=== PATIENT | female | born 1995 | race Caucasian/White ===

== ENCOUNTER 2019-08-21 14:06 | Inpatient (IN) | payer MEDICAID ==
[~2019-08-21] VITALS: Ht 157.5 cm; Wt 35.5 kg
[2019-08-21] MEDS ORDERED: magnesium hydroxide 30ml (MOM) UD suspension PO PRN (18:45)
[2019-08-21] MEDS ORDERED: loperamide 2mg capsule PO PRN (18:45)
[2019-08-21] MEDS ORDERED: acetaminophen 325mg tablet PO PRN (18:45)
[2019-08-21] MEDS ORDERED: mag hydrox/Alum hydrox/simeth 30ml oral suspension PO PRN (18:45)
[2019-08-21] MEDS: LORazepam 1 MG tablet PO PRN (19:35)
[2019-08-21] MEDS ORDERED: insulin regular, human 10 units/0.1 ml syringe SQ ONE (19:55)
[2019-08-21 20:00] VITALS: BP 107/69
[2019-08-21] MEDS ORDERED: metFORMIN 500mg tablet PO ONE (20:00)
[2019-08-21] MEDS ORDERED: METF-950 PO (21:36)
[2019-08-21] MEDS ORDERED: INSU500V IJ (21:36)
[2019-08-21] MEDS ORDERED: GLYB2.5T4 PO (21:36)
--- NOTE | 2019-08-22 02:06 | NUR ---
ADMIT NOTE Legal hold: 5150 Exp 08/24 @ 1820 Client on involuntary status for GD. Report received from WALLACE Malik with use of SBAR. Why are they here: Pt was brought to [facility] by her mother, with report of agitation, bizarre behaviors, poor self-care and drug use. 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 She was found in a ditch with medical and mental health issues. Pt is Type 1 DM. Assessment What has happened this shift: Pt arrived on unit in a wheelchair at 1820 with PCT Ramiro. Pt showered and the 2Nurse skin check was performed by WALLACE Capps and Deepa GONSALEZ. Pt belongings were logged and no contraband found. Pt was agitated, not quite sure why she was here. Pt was administered 1 mg Ativan. Pt's blood sugar was taken on arrival to unit - BS was 442. An order for 12 units of Humulin R (pt allergic to insulin Lispro) was received by Dr. Kang. Blood sugar was retaken around 2129 - BS 291. Pt is not a good historian and didn't answer many questions. Pt was agitated she missed her 3 year old daughter who's birthday is in two days, but when asked about daughter later pt wouldn't answer questions. Pt making delusional statements "I am a female Marvin", "I came of the the grave in [place] covered in dirt." "50 people said I was Marvin, I knew it when I passed a blind chani and he was healed." Pt was compliant with meds (insulin and Glucophage 500 mg tab). Pt retired to bed talking about the book of the . S/I, H/I: None reported or observed. Pt has a history of SI, but no attempts. 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 Any med S/E: None reported or observed. Mental Status Exam Appearance: Clean, wearing green unit scrubs, with her shirt underneath and a leopard print jacket. Cachectic appearance. Eye contact: Poor Behavior: Cooperative, agitated Speech: Clear, soft, pressured Mood: Agitated Affect: Congruent with mood Thought process: Delusional, tangential Thought Content: Pt wants to eat Cognition: Impaired Insight: Poor Judgment: Poor Interventions PRN's used: Ativan Therapeutic interventions: Introduced self and established rapport, 1:1 assessment, medication administration/education/monitoring, reality orientation; Q15 min safety checks. Restraints/seclusion/emergency medication: None Justification of Continued Inpatient Treatment: Pt needs interruption of current crisis with initiation and adjustment of medication in a safe and therapeutic environment.
[2019-08-22] MEDS: LORazepam 1 MG tablet PO PRN (03:15)
--- NOTE | 2019-08-22 03:30 | NUR ---
Pt awake at 0300, requested her blood sugar be checked as she felt low, pts sugar was 47, administered 30 GM CHO per protocol, rechecked blood sugar after 15 minutes and it was up to 79. Pt was also agitated, she was reading her advisement and was stating it was "All lies!" She stated that she has not been missing for 6 months, that she "arose from the grave after 6 days because I am Marvin and now I am being persecuted!!!" Ativan 1 mg given, will continue to monitor.
[2019-08-22 07:43] VITALS: BP 94/49
[2019-08-22] MEDS ORDERED: insulin regular, human 10 units/0.1 ml syringe SQ SCH (08:00)
[2019-08-22] MEDS: metFORMIN 500mg tablet PO SCH ×2 (08:02→17:50)
[2019-08-22] MEDS: insulin regular, human vial - multi-dose SQ SCH ×3 (08:07→18:09)
[2019-08-22 08:52] LABS: CHOL/HDL RATIO 3.4 (0.00-4.99); CHOLESTEROL 155 MG/DL (0-200); HDL CHOLESTEROL 45 MG/DL (35-60); LDL CHOLESTEROL 95 MG/DL (50-100); TRIGLYCERIDES 113 MG/DL (20-135)
[2019-08-22] MEDS ORDERED: pneumococcal 23-VAL P-sac vacc 25 mcg/0.5ml vial IMVAC ONE (10:00)
[2019-08-22] MEDS ORDERED: FLU VACC QS2019-20 36MOS UP/PF 60 MCG/0.5 ML SYRINGE IMVAC ONE (10:00)
--- NOTE | 2019-08-22 12:04 | NUR ---
DM/Malnutrition consults: Pt admit on 5150 found down in ditch after disappearing for 6 month relapsing on meth per RN note. Pt hx T1DM GLU 442 on admit w/ A1C 9.0. Pt having anxiety, hallucinations, stating "is female Marvin murphy from the grave" and is not appropriate for DM ed at this time. Pt has no edema/wounds, normal strength, no wt hx since first admit, and PO 75-100% breakfast today. At this time pt does not meet malnutrition criteria. Will monitor for additional criteria this admit. Rec: 1. continue carb controlled diet 2. bowel care as needed 3. weekly wts 4. monitor for ONS needs pending further PO hx this admit Addendum: 08/22/19 at [address] Amended: Links added.
[2019-08-22] MEDS ORDERED: insulin glargine (Lantus) pen - multi-dose SQ ONE (13:30)
--- NOTE | 2019-08-22 16:39 | NUR ---
ADMIT NOTE Legal hold: 5150 Exp 08/24 @ 1820 Client on involuntary status for GD. Report received from WALLACE Cameron with use of SBAR. Why are they here: Pt was brought to [facility] by her mother, with report of agitation, bizarre behaviors, poor self-care and drug use. 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 She was found in a ditch with medical and mental health issues. Pt is Type 1 DM. Assessment What has happened this shift: Pt yelling and screaming at her mother on the phone before breakfast. Pt encouraged to not yell and to talk quieter while other's are still sleeping. Pt followed directions well then shared how upset she was with her mother "it's her fault I am here." Pt provided consents to speak and share information with her mother, Hernandez Chandler and scott Calvin. Pt is diabetic with high BS's. She was given a one time dose of Lantus today due to BS of 494. Hospitalist to see and write insulin orders. S/I, H/I: None reported A/VH: Pt denies Sleep: took a two hour nap after AM medications ADL's: Independent Group attendance: Afternoon group Were Meds taken: Yes Any med S/E: None reported or observed. Mental Status Exam Appearance: Showering Eye contact: Poor Behavior: Cooperative, agitated Speech: Clear, soft, pressured Mood: Agitated Affect: Congruent with mood Thought process: Delusional, tangential Thought Content: Pt wants to eat Cognition: Impaired Insight: Poor Judgment: Poor Interventions PRN's used: Ativan Therapeutic interventions: 1:1 assessment, medication administration/education/monitoring, reality orientation; Q15 min safety checks. Restraints/seclusion/emergency medication: None Justification of Continued Inpatient Treatment: Pt needs interruption of current crisis with initiation and adjustment of medication in a safe and therapeutic environment. Addendum: 08/22/19 at 1657 by Edna Zarriello RN Not an admit note
[2019-08-22] MEDS ORDERED: metFORMIN 500mg tablet PO ONE (17:00)
[2019-08-22] MEDS ORDERED: dextrose ORAL solution 15 GM/59 ML bottle PO PRN ×2 (18:15)
[2019-08-22] MEDS ORDERED: glucagon, human recombinant 1mg kit SUBCUT PRN (18:15)
[2019-08-22] MEDS ORDERED: MESSAGE TO PHARMACY PO ONE (18:15)
[2019-08-22] MEDS ORDERED: dextrose 50%-water 50ml dispensing syringe IV PRN ×2 (18:15)
[2019-08-22] MEDS ORDERED: insulin Lispro (HumaLOG) vial - multi-dose SQ SCH (18:15)
[2019-08-22] MEDS ORDERED: insulin regular, human vial - multi-dose SQ SCH (18:27)
[2019-08-22] MEDS ORDERED: FURO-149 PO (19:03)
[2019-08-22] MEDS ORDERED: METO-292 PO ×2 (19:03)
[2019-08-22] MEDS ORDERED: AMLO5TAB4 PO (19:03)
[2019-08-22] MEDS ORDERED: LEVO200T8 PO (19:03)
[2019-08-22] MEDS ORDERED: METO-539 PO (19:03)
[2019-08-22] MEDS ORDERED: CALC668T PO (19:03)
[2019-08-22] MEDS ORDERED: FOLI1CAP8 PO (19:03)
[2019-08-22] MEDS ORDERED: ONDA4TAB6 PO (19:03)
[2019-08-22] MEDS ORDERED: ALBU2.5V13 NEB (19:03)
[2019-08-22] MEDS ORDERED: PANT-47 PO (19:03)
[2019-08-22] MEDS ORDERED: FENO160T13 PO (19:03)
[2019-08-22] MEDS ORDERED: GABA-532 PO (19:03)
[2019-08-22] MEDS ORDERED: SERT100T PO (19:03)
[2019-08-22] MEDS ORDERED: FLUT1BLS4 PO (19:03)
[2019-08-22] MEDS ORDERED: CLOP75TA9 PO (19:03)
[2019-08-22] MEDS ORDERED: hyDRALAzine 10mg tablet PO PRN (19:20)
[2019-08-22 19:57] VITALS: BP 123/64
[2019-08-22] MEDS: insulin glargine (Lantus) pen - multi-dose SQ SCH (21:13)
[2019-08-22] MEDS ORDERED: risperiDONE 0.5mg tablet PO ONE (22:40)
[2019-08-22] MEDS ORDERED: divalproex sod 250mg ER (24-hour) tablet PO ONE (22:40)
[2019-08-23] MEDS ORDERED: quetiapine 100mg tablet PO ONE (00:35)
--- NOTE | 2019-08-23 01:58 | NUR ---
Nursing Progress Note Legal hold: 5150 Exp 08/24 @ 1820 Client on involuntary status for GD. Report received from WALLACE Salomon with use of SBAR. Why are they here: Pt was brought to [facility] by her mother, with report of agitation, bizarre behaviors, poor self-care and drug use. 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 She was found in a ditch with medical and mental health issues. Pt is Type 1 DM. Assessment What has happened this shift: Pt walking perez with another peer. Pt appears to crying then starts laughing. Pt conversation is disorganized, unable to keep on one idea. Pt states "oh ya you think you are, when asked questions; almost like she is answering questions in head. Pt perseverated on Andres, PCT thinking he was another Andres "you don't give a fuck about me , not if I live or ." Pt reported "I feel like something is crawling out of my throat. This newswriter reoriented pt to reality. Pt was restless, possibly hypomanic. Pt was started on Depakote ER 1,000mg and Risperdal 1mg. Pt was administered 8 units of Lantus with protocol starting tomorrow as per note from Stuart. Dr. Orr added Hydralazine 10 mg PRN for pt's HTN. Pt hasn't been taking home meds for several months now. Pt's blood sugar was 230 before snack, pt received low fat yogurt and cheese. Pt received her flu and pneumonia injection. Pt had to be monitored for elopement. Pt was up to the front entrance "I am not going to sit around and rot in this hospital or this bed." "I am going down the hill where I belong." With some reassurance and redirection, pt eventually was assisted back to her bed where she is currently sleeping with even, unlabored breathing. Pt's blood sugar at this time was 306. 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 Any med S/E: None reported or observed. Mental Status Exam Appearance: Clean, thin, wearing street clothes with a fuzzy leopard print jacket and baseball cap Eye contact: Poor Behavior: Cooperative, agitated, hypomanic Speech: Clear, soft, pressured Mood: Agitated, hypomanic, delusional Affect: Flat with intermittent animation Thought process: Delusional, tangential Thought Content: Pt wants to eat Cognition: Impaired Insight: Poor Judgment: Poor Interventions PRN's used: None Therapeutic interventions: 1:1 assessment, medication administration/education/monitoring, reality orientation; Q15 min safety checks. Restraints/seclusion/emergency medication: None Justification of Continued Inpatient Treatment: Pt needs interruption of current crisis with initiation and adjustment of medication in a safe and therapeutic environment. Addendum: 08/23/19 at 0324 by Hetal Jaimes RN Pt is awake, pt is agitated and wants a cigarette. Unit rules are explained. Pt is refusing any interventions. "I don't do patches or lozenges." You are a patient here and you smoke, I want a cigarette." Pt refuses anti-anxiety interventions. Will continue to monitor.
[2019-08-23 05:45] LABS: BASOPHILS % (AUTO) 0.3 % (0-1); EOSINOPHILS % (AUTO) 0.3 % (0-6); HEMATOCRIT 37.6 % (35.0-45.0); HEMOGLOBIN 12.7 g/dl (12.0-16.0); LYMPHOCYTES # (AUTO) 2.4 X10'3 (1.1-4.8); MEAN CORPUSCULAR HEMOGLOBIN 31.5 PG (27.0-31.0); MEAN CORPUSCULAR HGB CONC 33.8 g/dL (33.0-36.5); MEAN CORPUSCULAR VOLUME 93.1 FL (78-98); MEAN PLATELET VOLUME 8.3 FL (7.4-10.4); MONOCYTES % (AUTO) 6.6 % (2-12); NEUTROPHILS # (AUTO) 11.4 X10'3 (1.8-7.7); NEUTROPHILS % (AUTO) 76.8 % (42-75); PLATELET COUNT 302 X10'3 (140-440); RED BLOOD COUNT 4.04 X10'6 (4.20-5.60); WHITE BLOOD COUNT 14.9 X10'3 (4.5-11.0)
[2019-08-23 06:02] LABS: ALANINE AMINOTRANSFERASE 30 U/L (12-78); ALBUMIN 3.2 G/DL (3.4-5.0); ALKALINE PHOSPHATASE 88 IU/L (46-116); ANION GAP 8 (8-16); ASPARTATE AMINO TRANSFERASE 14 U/L (10-37); BILIRUBIN,TOTAL 0.3 MG/DL (0.1-1.0); BLOOD UREA NITROGEN 13 MG/DL (7-18); BUN/CREATININE RATIO 14.3 (6.6-38.0); CHLORIDE 101 MMOL/L (99-107); CREATININE 0.91 MG/DL (0.40-0.90); GLUCOSE 249 MG/DL (70-104); POTASSIUM 4.3 MMOL/L (3.5-5.1); SODIUM 137 MMOL/L (135-145); TOTAL CARBON DIOXIDE 28.5 MMOL/L (24-32); TOTAL PROTEIN 6.4 G/DL (6.4-8.2); eGFR 75 ML/MIN
[2019-08-23] MEDS: metFORMIN 500mg tablet PO SCH ×2 (07:25→21:44)
[2019-08-23 08:00] VITALS: BP 107/63
[2019-08-23] MEDS ORDERED: non-formulary drug (Glyburide 1 TAB) PO SCH (08:00)
[2019-08-23] MEDS: insulin regular, human vial - multi-dose SQ SCH ×2 (08:27→13:27)
[2019-08-23] MEDS: LORazepam 1 MG tablet PO PRN (14:06)
[2019-08-23] MEDS ORDERED: LORazepam 1 MG tablet PO ONE (14:15)
[2019-08-23] MEDS ORDERED: diphenhydrAMINE 25mg capsule PO ONE (14:15)
[2019-08-23] MEDS ORDERED: haloperidol 5mg tablet PO ONE (14:15)
--- NOTE | 2019-08-23 17:17 | NUR ---
Nursing Progress Note Legal hold: 5150 Exp 08/24 @ 1820 Client on involuntary status for GD. Report received from WALLACE Fong with use of SBAR. Why are they here: Pt was brought to [facility] by her mother, with report of agitation, bizarre behaviors, poor self-care and drug use. 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 She was found in a ditch with medical and mental health issues. Pt is Type 1 DM. Assessment What has happened this shift: Pt walking perez with another peer. Pt had a good moring; She is now on Level 2. BSs running in the high 200s. After lunch pt tried to get out two doors, crying yelling, please let me out of here I want to see my Mom, my baby. She ended up in the doctors office on the floor crying. Pt was assisted to her room she requested PRNs, I just want to sleep. Pt cried for the next two hours laying on the bed in the observation room. S/I, H/I: Denies A/VH: Denies Sleep: Slept after PRNs fell asleep at 1515 ADL's: Independent Group attendance: AM Were Meds taken: Medication compliant. Any med S/E: None reported or observed. Mental Status Exam Appearance: She is wearing the same clothes from yesterday Eye contact: Poor Behavior: Cooperative, agitated, hypomanic Speech: Clear, soft, pressured Mood: Agitated, hypomanic, delusional Affect: Depressed affect; tearful Thought process: Delusional, tangential Thought Content: Pt wants to eat Cognition: Impaired Insight: Poor Judgment: Poor Interventions PRN's used: None Therapeutic interventions: 1:1 assessment, medication administration/education/monitoring, encouraged pt to calm down and talk about her feelings reality orientation, Q15 min safety checks. Restraints/seclusion/emergency medication: None Justification of Continued Inpatient Treatment: Pt needs interruption of current crisis with initiation and adjustment of medication in a safe and therapeutic environment.
[2019-08-23 20:55] VITALS: BP 97/58
[2019-08-23] MEDS ORDERED: risperiDONE 0.5mg tablet PO SCH (21:00)
[2019-08-23] MEDS: divalproex sod 250mg ER (24-hour) tablet PO SCH (21:44)
[2019-08-23] MEDS: insulin glargine (Lantus) pen - multi-dose SQ SCH (22:06)
--- NOTE | 2019-08-24 02:02 | NUR ---
Nursing Progress Note Legal hold: 5150 Exp 08/24 @ 1820 Client on involuntary status for GD. Report received from WALLACE Salomon with use of SBAR. Why are they here: Pt was brought to [facility] by her mother, with report of agitation, bizarre behaviors, poor self-care and drug use. 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 She was found in a ditch with medical and mental health issues. Pt is Type 1 DM. Assessment What has happened this shift: Pt was alseep in the Observation Room at shift change. No distress noted, respirations even and unlabored, no sweating or restlessness noted. Skin color normal. As per report pt had had an emotional day. Pt was woke up around 2100 - for vitals, blood sugar and HS medication administration. Pt's blood sugar at this time was 183. Pt jumped out of bed and started yelling and crying "I want to see my daughter!" "Today is her birthday and I need to see my daughter!" Pt was not redirectable. Pt called her mother and began screaming and cursing "you need to come and get out of this fucking place!" "Everybody here is on meth.!" Pt began to escalate and started walking the halls looking at doors, still verbally abusing mother and staff. Pt attempted to [facility] the [facility]. This senior grant writer had to get between door and patient. Pt continued to escalate, security was called. Pt again was not redirectable. Pt threatened to throw phone and kept cursing at staff and security. Phone was removed from pt. Pt dropped herself to the floor, without incident and laid there crying and cursing. Pt refused to get up even after several verbal attempts. Security assisted pt back to the Observation Room where pt was offered a snack and her HS medications. Lantus 12 units were administered as per protocol. Pt fell back to sleep without incident. S/I, H/I: None reported or observed A/VH: None reported or observed Sleep: Refer to Sleep Assessment ADL's: Independent- pt refuses any interventions. Pt needs to shower. 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 Any med S/E: None reported or observed. Mental Status Exam Appearance: Clean, thin, wearing street clothes with a fuzzy leopard print jacket and baseball cap Eye contact: Poor Behavior: Angry, agitated, volatile Speech: Clear, pressured, loud Mood: Agitated, resistive, delusional Affect: Labile Thought process: Delusional, tangential Thought Content: Seeing her daughter Cognition: Impaired Insight: Poor Judgment: Poor Interventions PRN's used: None Therapeutic interventions: 1:1 assessment, medication administration/education/monitoring, reality orientation; Q15 min safety checks. Restraints/seclusion/emergency medication: None Justification of Continued Inpatient Treatment: Pt needs interruption of current crisis with initiation and adjustment of medication in a safe and therapeutic environment. Pt continues to be an elopement risk.
[2019-08-24] MEDS: metFORMIN 500mg tablet PO SCH ×2 (08:41→16:10)
[2019-08-24 08:52] VITALS: BP 90/48
[2019-08-24] MEDS: insulin regular, human vial - multi-dose SQ SCH ×3 (09:07→21:11)
--- NOTE | 2019-08-24 15:26 | NUR ---
Patient approached staff with c/o symptoms of low blood sugar. FSBG 29. patient awake and able to consume oral intake. Provided with Juice, Ensure and a PB & J (no turkey sandwich available). On recheck at 15 minutes FSBG 51. Intake was a total of 29G protein and 92 G carbohydrates. Patient states feeling better. Reported incident to Alena GONSALEZ who assumed care.
--- NOTE | 2019-08-24 15:46 | NUR ---
This RN on lunch. Upon return report received of pt BG. RN went in to see pt resting in bed. PT AXOX4, states feeling "better". BG rechecked and at 96 now. DESI Blunt aware of incident and on [facility] floor. RN asked DESI Blunt if 1700 glucophage should be held considering current event with BG. Jose Raul states to hold this medication. Pt up and walking halls, makes phone call.
--- NOTE | 2019-08-24 15:53 | NUR ---
Pt drops down 2 Insulin Levels per Protocol as BG below 60. Pt now back to Level 2 from 4.
--- NOTE | 2019-08-24 17:36 | NUR ---
Nursing Progress Note Legal hold: 5150 Exp 08/24 @ 1820 Client on involuntary status for GD. Report received from WALLACE Salomon with use of SBAR. Why are they here: Pt was brought to [facility] by her mother, with report of agitation, bizarre behaviors, poor self-care and drug use. 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 She was found in a ditch with medical and mental health issues. Pt is Type 1 DM. Assessment What has happened this shift: Pt was alseep at shift change. No distress noted, respirations even and unlabored, no sweating or restlessness noted. Skin color normal. Pt am blood sugar checked and pt needing encouragement to get up and go to breakfast. Pt repeatedly states I need my insulin and this insulin isnt working. When RN explained insulin needed to be given after pt eats in order to count carbs, pt became agitated and angry and would not respond to any more of the nurses questions. At breakfast pt given oral glucophage per order and pt then threw cup at RN after taking it stating I never take this medication. When addressed as Ana, she states You dont know my name. Natali told you 100 times and Im not fucking telling you again. When RN explained she had not ever heard any other name and this was the first time this RN had seen her, pt spelled something incomprehensible and refused to keep talking. Pt up and walking around later in morning and talking to mother on the phone. Pt states to this RN, I havent seen you before. Pt then calm, cooperative with RN, pleasant. Eats full lunch and insulin given. Pt back to bed. Pt began this am as Insulin Level 3 per Hyperglycemic Managment protocol and went to Level 4 at lunch. While this RN was on lunch break pt ambulated to the nurses station stating she did not feel well and was diaphoretic and pale. Pt BG was 29. Pt given food and liquid po per Brianna GONSALEZ and BG rechecked to be 51. When this RN returned, pt resting in bed and RN went to talk with her. She states she felt better and BG rechecked to be 96. Pt then up out of bed, ambulating perez, talking. DESI Blunt on [facility] floor during incident. RN asked if glucophage should be held d/t this incident and Jose Raul ordered it to be held. Pt Insulin Level dropped 2 levels per protocol and is Level 2 for dinner. S/I, H/I: None reported or observed A/VH: None reported or observed Sleep: Per noc shift, pt slept 9.25 hr, naps throught the day ADL's: Independent- pt refuses any interventions. Pt needs to shower. Group attendance: no group Were Meds taken: Medication compliant. Any med S/E: None reported or observed. Mental Status Exam Appearance: Clean, thin, wearing street clothes with a fuzzy leopard print jacket and baseball cap Eye contact: Poor Behavior: Angry, agitated, volatile Speech: Clear, pressured, loud Mood: Agitated, resistive, delusional Affect: Labile Thought process: Delusional, tangential Thought Content: Seeing her daughter Cognition: Impaired Insight: Poor Judgment: Poor Interventions PRN's used: None Therapeutic interventions: 1:1 assessment, medication administration/education/monitoring, reality orientation; Q15 min safety checks. Restraints/seclusion/emergency medication: None Justification of Continued Inpatient Treatment: Pt needs interruption of current crisis with initiation and adjustment of medication in a safe and therapeutic environment. Pt continues to be an elopement risk.
[2019-08-24 17:51] VITALS: BP 105/55
--- NOTE | 2019-08-24 17:52 | NUR ---
Pt states not feeling well and laying on the floor. States she is dizzy, nauseous. Vitals checked and BG again. All WNL and documented. Pt assisted to bed per 2 RN and 1 tech. Dinner arrived and pt states she would like to go. Pt ambulated to dining room with RN.
[2019-08-24] MEDS ORDERED: ondansetron 4mg rapidly disintigrating tab PO PRN (18:05)
--- NOTE | 2019-08-24 18:10 | NUR ---
Pt comes back from dining room stating she does "not feel well still". She is "nauseous". She states she did not eat dinner. Pt assisted back to bed. DESI Blunt here and notified of pt condition. Per DESI Blunt, RN to hold post dinner dose of insulin. He also states to "use judgement with noc Lantus and it may need to be cut back". RN held dinner insulin and told charge master specialist of noc Lantus instruction per Jose Raul. Order also received for Anh LEUNG PRN. RN Awaiting pharmacy and will administer med. Tech at pt bedside currently.
[2019-08-24 20:00] VITALS: BP 103/70
--- NOTE | 2019-08-24 20:31 | NUR ---
HYPERGLYCEMIC EVENT: 2030: HS BG Check = 408 Pt had 1 cheese stick and sugar free jello for snack. Pt asymptomatic. 2039: BG Recheck = 422 Education Technician MD: Enid notified of BG and that pt asymptomatic @ 2044. This RN given orders to administer Regular Insulin per Nighttime Insulin Adjustment Protocol Tool and recheck BG in 2 hrs. 2114: 5 units regular insulin given per protocol (Level 2); 14 Units Lantus given per protocol (20% increase from previous night of 12 units based on AM BG of 284). Pt remains asymptomatic. 2214: BG Recheck = 290 Pt remains asymptomatic. 2319: BG Recheck = 214. : nEid notified of results. No additional orders for insulin or glucose checks given, stating "I don't want her to bottom out." Pt remains asymptomatic. Addendum: 08/25/19 at 0548 by Shahla Barraza RN 0545: BG recheck = 237. Pt resting comfortably before and after check. Asymptomatic.
[2019-08-24] MEDS: divalproex sod 250mg ER (24-hour) tablet PO SCH (20:44)
[2019-08-24] MEDS: risperiDONE 2mg tablet PO SCH (20:44)
[2019-08-24] MEDS: insulin glargine (Lantus) pen - multi-dose SQ SCH (21:13)
[2019-08-25] MEDS: hydrOXYzine 25 MG tablet PO PRN ×2 (01:00→22:33)
--- NOTE | 2019-08-25 02:59 | NUR ---
Nursing Progress Note Legal hold: 5250 Client on involuntary status for GD. Report received from Bhupinder RN with use of SBAR. Why are they here: Pt was brought to [facility] by her mother, with report of agitation, bizarre behaviors, poor self-care and drug use. 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 She was found in a ditch with medical and mental health issues. Pt is Type 1 DM. Assessment What has happened this shift: Pt walking unit at change of shift. Pt requests shower; request obliged and pt given new scrubs. Pt cooperative and appropriate in responses this evening. States day "went good" and that "sleep made me feel a lot better." Pt denied depression and anxiety. Pt is not making delusional statements and denies A/V H but would laugh spontaneously and not elaborate on what is funny, "oh, nothing." Pt did not exhibit behaviors r/t nor threaten elopement. Pt unable to tell this RN why she was admitted to the hospital. Pt attended snack and maintained Carb Controlled diet but had to be told by this RN what she could eat. Pt compliant with HS medications and insulin given/adjusted as dictated in 08/24 2031 hyperglycemic event note. Pt watched TV before heading to bed at 2200. Pt awoke at 0100 stating she felt itchy; rash on pt's back remains visible but the rash is not raised. PRN Atarax administered. Pt is asymptomatic for hypoglycemia at this time. Pt stated she had an "Odd dream. Bears had their spines removed and put in a straight line. But it is a dream, so it doesn't really matter. Just odd." Pt stated this wasn't a nightmare and didn't make her uneasy but this RN stated she would relay this dream during report. Pt asked the head of her bed be lowered, warm blanket provided, and pt returned to sleep. S/I, H/I: Denies both A/VH: Denies both Sleep: See Sleep Assessment ADL's: Independent, pt showered this evening. Group attendance: N/A Were Meds taken: Yes Any med S/E: None reported or observed. Mental Status Exam Appearance: Clean, thin, wearing unit scrubs and nonskid socks Eye contact: Intermittent Behavior: Cooperative, Attended HS snack, Showered, Watched TV Speech: Clear Mood: "Better" Affect: Blunted, Laughs spontaneously at times Thought process: Linear Thought Content: Wanting to shower, insulin adjustments, hoping her roommate stays calm Cognition: A/Ox3 (off for circumstance) Insight: Poor Judgment: Poor Interventions PRN's used: Atarax Therapeutic interventions: 1:1 assessment, medication administration/education/monitoring; Q15 min safety checks. Restraints/seclusion/emergency medication: None Justification of Continued Inpatient Treatment: Pt needs interruption of current crisis with initiation and adjustment of medication in a safe and therapeutic environment. Pt mood fluctuates throughout the day.
[2019-08-25 08:00] VITALS: BP 119/76
[2019-08-25] MEDS: metFORMIN 500mg tablet PO SCH ×2 (08:06→17:35)
[2019-08-25] MEDS: insulin regular, human vial - multi-dose SQ SCH ×4 (08:34→21:22)
[2019-08-25] MEDS: NICOTINE POLACRILEX 2 MG LOZENGE BC PRN (17:42)
--- NOTE | 2019-08-25 17:46 | NUR ---
Nursing Progress Note Legal hold: 5250 Client on involuntary status for GD. Report received from Deysi Gill RN with use of SBAR. Why are they here: Pt was brought to [facility] by her mother, with report of agitation, bizarre behaviors, poor self-care and drug use. 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 She was found in a ditch with medical and mental health issues. Pt is Type 1 DM. Assessment What has happened this shift: Pt denied depression, anxiety, SI/HI/AH/VH. Pt was in a good mood today,she was pleasant and cooperative, she responded well to the limit setting of no regular sugar or hot chocolate and was compliant with diabetic appropriate snacks. Pt's FSBG were improved today, kept pt at a level II, did not advance to a level III. BG AC bkfst was 237, she was given 12 units regular insulin, AC lunch was 186, gave 9 units. Pt requested her FSBG be checked at 1550 as she felt funny, it was 165. FSBG AC dinner was 178. Pt has been eating 100% of meals and snacks. Pt stating that she wishes to be discharged, thinks she is going to go to "[facility]." She was happy about being able to use tobacco there, pt requested a nicotine patch today. Reminded her that she had gone without a patch for 4 days. Pt states she doesn't smoke that much, sometimes only 1 cigarette per day. Pt was agreeable to trying prn nicotine lozenges, order obtained for nicotine lozenge 2 mg Q4H prn. Asked pt if she was . Pt replied, "yes but that doesn't mean he wants me to live with him." Asked pt if she could go and live with her mom. Pt was uncertain, stated, "I don't know, my mom's a little crazy." Pt requested a list of her medications today, pt wished to know generic and brand names, extensive medication education provided. Pt stated, "I think they've got me on the right regimen." S/I, H/I: Pt denies A/VH: Pt denies Sleep: Slept 6 hours per noc shift report ADL's: Independent Group attendance: Yes Were Meds taken: Yes Any med S/E: None reported or observed. Mental Status Exam Appearance: Clean, dressed in street clothes. Eye contact: Good Behavior: Pleasant, cooperative Speech: Clear, audible Mood: Good Affect: Happy Thought process: Linear Thought Content: Thinks that she is on the right medication regimen, craving nicotine, wants to be discharged, her mom is crazy. Cognition: A/O X 3, some disorientation re: situation Insight: Poor Judgment: Poor Interventions PRN's used: nicotine lozenge Therapeutic interventions: 1:1 assessment, establishment of rapport, active listening, therapeutic conversation, medication administration/education/monitoring, blood sugar monitoring & control, limit setting, positive reinforcement, Q15 min safety checks. Restraints/seclusion/emergency medication: None Justification of Continued Inpatient Treatment: Pt needs interruption of current crisis with medication adjustment and monitoring in a safe and therapeutic environment as well as a safe discharge plan. Addendum: 08/25/19 at 1810 by Lynda Jacome RN (Lee) Rash on pt's back has resolved, pt declined to allow a picture to be taken.
[2019-08-25 19:47] VITALS: BP 118/73
[2019-08-25] MEDS: risperiDONE 2mg tablet PO SCH (21:16)
[2019-08-25] MEDS: divalproex sod 250mg ER (24-hour) tablet PO SCH (21:16)
[2019-08-25] MEDS: insulin glargine (Lantus) pen - multi-dose SQ SCH (21:19)
--- NOTE | 2019-08-26 00:42 | NUR ---
Nursing Progress Note Legal hold: 5250 Exp 09/07 @ 1820 Client on involuntary status for GD. Report received from Carmen Russo RN with use of SBAR. Why are they here: Pt was brought to [facility] by her mother, with report of agitation, bizarre behaviors, poor self-care and drug use. 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 She was found in a ditch with medical and mental health issues. Pt is Type 1 DM. Assessment What has happened this shift: Pt was walking the perez with another peer smiling and interacting appropriately. Pts presents as calm and cooperative. This health underwriter observed no agitation on tenseness in patient. Pt was cooperative with meds and 1:1 assessment. Pt was observed talking to another staff member and when asked what she wanted to do I want to be a Pulmonary Function Technician or a Pathologist, I want to shed new light on . Pt is on a Level 2 diabetic protocol. HS blood glucose was 297. Pt was administered 2 units of Humulin-R as per night time protocol and 17 units of her scheduled Lantus. Pt was given an HS snack. Pt denies SI, A/VH. Pts mood has improved. Pt showered this shift and then sat and colored in the group room. Pt retired to bed shortly after 2200. 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 Mental Status Exam Appearance: Clean, dressed in street clothes. Pt showered this shift Eye contact: Good Behavior: Pleasant, cooperative Speech: Clear, audible Mood: Good Affect: Happy Thought process: Linear Thought Content: Wants to go home Cognition: A/O X 3, some disorientation re: situation Insight: Poor Judgment: Poor Interventions PRN's used: Atarax Therapeutic interventions: 1:1 assessment, establishment of rapport, active listening, therapeutic conversation, medication administration/education/monitoring, blood sugar monitoring & control, limit setting, positive reinforcement, Q15 min safety checks. Restraints/seclusion/emergency medication: None Justification of Continued Inpatient Treatment: Pt needs interruption of current crisis with medication adjustment and monitoring in a safe and therapeutic environment as well as a safe discharge plan.
[2019-08-26] MEDS: metFORMIN 500mg tablet PO SCH ×2 (07:39→16:58)
[2019-08-26 07:42] VITALS: BP 124/68
[2019-08-26] MEDS: insulin regular, human vial - multi-dose SQ SCH ×3 (08:38→17:59)
--- NOTE | 2019-08-26 09:45 | NUR ---
Reassessment: Pt continues on CHO controlled diet documented with 75-100% PO intake meeting nutrient needs. LBM 08/24. DM education still not appropriate at this time. Will continue to follow. Rec: 1. continue carb controlled diet 2. bowel care as needed 3. weekly wts 4. monitor for ONS needs if PO intake declines Addendum: 08/26/19 at [address] Amended: Links added.
[2019-08-26] MEDS: NICOTINE POLACRILEX 2 MG LOZENGE BC PRN ×2 (10:49→22:03)
[2019-08-26] MEDS: acetaminophen 325mg tablet PO PRN (12:21)
--- NOTE | 2019-08-26 14:25 | NUR ---
1:1- DCP activities SS met w/pt and engaged her in dcp activities to identify an appropriate discharge destination for her upon d/c. Per discussion, pt reports, " I can go to Shilpa's house, cause she lives in [place] & from there I can call Nikunj to pick me up". SS provided CBT support for pt to assess the reality of this plan, pt able to verbalize, "maybe going to my mom's is better, because she needs help too, so we can help each other out". SS asked pt if it was alright for SS to contact pt's mother via phone and finalize dcp w/her. Pt agreeable to this. SS had t/c with pt's mother, Geraldine and engaged her in dcp activities. Per t/c, Geraldine wants pt to go to [place] where she (Geraldine) can help pt access services from [facility] services and pt would have stable housing. Geraldine is available to pick pt up on the weekends. also had t/c with Carmen Graham behavioral health clinician-Bogdan, per t/c [facility] will continue to call to get updates and finalize dcp when pt is ready for d/c. Carmen Sd is agreeable for pt to go to [place] w/her mother if pt continues to desire so. Plan: will continue to engage pt's mother & Carmen GALVAN in dcp activities. will also contact [facility] to coordinate f/u care for pt prior to d/c Lissa Lala LCSW Addendum: 08/26/19 at 1507 by Lissa Lala Amended: Links added.
--- NOTE | 2019-08-26 16:49 | NUR ---
Nursing Progress Note Ana Legal hold: 5250 Exp 09/07 @ 1820 Client on involuntary status for GD. Report received from CRN with use of SBAR. Why are they here: Pt was brought to [facility] by her mother, with report of agitation, bizarre behaviors, poor self-care and drug use. 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 She was found in a ditch with medical and mental health issues. Pt is Type 1 DM. Assessment What has happened this shift: Client was in bed to begin this shift. No somatic complaints on am assessment. BS this am was 57. Client was covered per orders and showed no s/s of hypo/hyper glycemia noted. Client behavior has been appropriate. Client attended Group and was appropriate with both staff as well as her peer group. BS at mid-day was 160 and she was covered with insulin per Doctors orders. Client has a Court hearing today to determine if she will remain in this service for further treatment. Her behavior all shift has been appropriate. Client hold was upheld during Hearing this afternoon. S/I, H/I: None reported or observe A/VH: None reported or observed Sleep: 7.5 last shift. ADL's: Independent Group attendance: yes Were Meds taken: Medication compliant Any med S/E: None reported or observed. Mental Status Exam Appearance: Clean, dressed in green scrubs. Pt showered this shift Eye contact: Good Behavior: Pleasant, cooperative Speech: Clear, audible Mood: Good Affect: Happy Thought process: Linear Thought Content: Wants to go home Cognition: A/O X 3, some disorientation re: situation Insight: Poor Judgment: Poor Interventions PRN's used: Nicotine Lozenge Therapeutic interventions: 1:1 assessment, establishment of rapport, active listening, therapeutic conversation, medication administration/education/monitoring, blood sugar monitoring & control, limit setting, positive reinforcement, Q15 min safety checks. Restraints/seclusion/emergency medication: None Justification of Continued Inpatient Treatment: Pt needs interruption of current crisis with medication adjustment and monitoring in a safe and therapeutic environment as well as a safe discharge plan.
[2019-08-26] MEDS: hydrOXYzine 25 MG tablet PO PRN (19:34)
[2019-08-26 20:12] VITALS: BP 121/60
[2019-08-26] MEDS: risperiDONE 2mg tablet PO SCH (21:07)
[2019-08-26] MEDS: LORazepam 1 MG tablet PO PRN (21:07)
[2019-08-26] MEDS: divalproex sod 250mg ER (24-hour) tablet PO SCH (21:08)
[2019-08-26] MEDS: insulin glargine (Lantus) pen - multi-dose SQ SCH (21:10)
--- NOTE | 2019-08-26 22:12 | NUR ---
Nursing Progress Note Legal hold: 5250 Exp 09/07 @ 1820 Client on involuntary status for GD. Report received from WALLACE Cabrera with use of SBAR. Why are they here: Pt was brought to [facility] by her mother, with report of agitation, bizarre behaviors, poor self-care and drug use. 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 She was found in a ditch with medical and mental health issues. Pt is Type 1 DM. Assessment What has happened this shift: Pt was walking halls interacting appropriately at shift change. Pt is friendly and gets along with most of her peers. Pt is cooperative and compliant. No behavioral issues noted as of this writing. Pt's HS blood sugar 96. Lantus was decreased to to 15 units as per protocol. Pt is at Level 1. GFR is 75. Depakote was increased to 1250 mg. Pt states she is probably going to live with her mom when she is discharged because "she is coming to her senses, just like everyone else." When asked what this meant pt replied "they know I am not crazy." Pt requested an Ativan reports 6/10 anxiety "I don't like my roommate, she has bad energy." Ativan is effective. Pt retires to bed without incident. 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 Mental Status Exam Appearance: Clean, dressed in green unit scrubs, with fuzzy boots Eye contact: Good Behavior: Pleasant, cooperative Speech: Clear, audible Mood: Good Affect: Bright Thought process: Linear Thought Content: Wants to go home Cognition: A/O X 3, some disorientation re: situation Insight: Poor Judgment: Poor Interventions PRN's used: Atarax, Ativan, Nicotine Lozenge Therapeutic interventions: 1:1 assessment, establishment of rapport, active listening, therapeutic conversation, medication administration/education/monitoring, blood sugar monitoring & control, limit setting, positive reinforcement, Q15 min safety checks. Restraints/seclusion/emergency medication: None Justification of Continued Inpatient Treatment: Pt needs interruption of current crisis with medication adjustment and monitoring in a safe and therapeutic environment as well as a safe discharge plan. Addendum: 08/27/19 at 0355 by Hetal Jaimes RN Pt woke up had an incontinent episode. Pt showered, bedding was changed.
[2019-08-27] MEDS: metFORMIN 500mg tablet PO SCH ×2 (07:48→17:29)
[2019-08-27 08:00] VITALS: BP 113/51
[2019-08-27] MEDS: insulin regular, human vial - multi-dose SQ SCH ×3 (08:28→18:21)
[2019-08-27] MEDS: hydrOXYzine 25 MG tablet PO PRN ×2 (08:31→22:21)
[2019-08-27] MEDS: NICOTINE POLACRILEX 2 MG LOZENGE BC PRN (10:08)
[2019-08-27] MEDS: docusate sod 100mg capsule PO SCH (12:18)
[2019-08-27] MEDS: LORazepam 1 MG tablet PO PRN (12:18)
--- NOTE | 2019-08-27 17:24 | NUR ---
Nursing Progress Note Ana Legal hold: 5250 Exp 09/07 @ 1820 Client on involuntary status for GD. Report received from Nisha PETERSON with use of SBAR. Why are they here: Pt was brought to [facility] by her mother, with report of agitation, bizarre behaviors, poor self-care and drug use. 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 She was found in a ditch with medical and mental health issues. Pt is Type 1 DM. Assessment What has happened this shift: Pt up and visible on the unit. Pt bx was mostly appropriate without agitation. Pt denies suicidal thoughts and auditory hallucinations. Pt thoughts dont connect all the time and at times she says things that dont make sense at all. Pt is compliant with directions to maintain her blood glucose. Pt did c/o anxiety throughout the morning and first received atarax then ativan. No further complaints. S/I, H/I: None reported or observe A/VH: None reported or observed Sleep: 5.25 last shift. ADL's: Independent Group attendance: yes Were Meds taken: Medication compliant Any med S/E: None reported or observed. Mental Status Exam Appearance: Clean, dressed in green scrubs. Pt showered this shift Eye contact: Good Behavior: Pleasant, cooperative Speech: Clear, audible Mood: Good Affect: Happy Thought process: Linear Thought Content: Wants to go home Cognition: A/O X 3, some disorientation re: situation Insight: Poor Judgment: Poor Interventions PRN's used: Nicotine Lozenge, ativan, atarax Therapeutic interventions: 1:1 assessment, establishment of rapport, active listening, therapeutic conversation, medication administration/education/monitoring, blood sugar monitoring & control, limit setting, positive reinforcement, Q15 min safety checks. Restraints/seclusion/emergency medication: None Justification of Continued Inpatient Treatment: Pt needs interruption of current crisis with medication adjustment and monitoring in a safe and therapeutic environment as well as a safe discharge plan.
[2019-08-27 19:34] VITALS: BP 114/63
[2019-08-27] MEDS: risperiDONE 2mg tablet PO SCH (20:55)
[2019-08-27] MEDS: divalproex sod 250mg ER (24-hour) tablet PO SCH (20:55)
[2019-08-27] MEDS: insulin glargine (Lantus) pen - multi-dose SQ SCH (20:58)
--- NOTE | 2019-08-27 21:47 | NUR ---
Nursing Progress Note Legal hold: 5250 Exp 09/07 @ 1820 Client on involuntary status for GD. Report received from WALLACE Salomon with use of SBAR. Why are they here: Pt was brought to [facility] by her mother, with report of agitation, bizarre behaviors, poor self-care and drug use. 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 She was found in a ditch with medical and mental health issues. Pt is Type 1 DM. Assessment What has happened this shift: Pt observed on unit socializing appropriately with other peers. Pt's mood is bright. Pt is looking forward to her discharge. The first thing pt is going to do is "call her daughter the smoke a cigarette." Pt's is on Diabetic Protocol Level 2. HS blood glucose was 184, received 18 units of Lantus based on protocol. GFR 75. Pt is goal oriented. Pt had a small abrasion on her knee that she asked for a bandage. Pt states she got it from praying (on he knees). 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 Mental Status Exam Appearance: Clean, dressed in green unit scrubs, with fuzzy boots Eye contact: Good Behavior: Pleasant, cooperative Speech: Clear, audible Mood: Good Affect: Happy Thought process: Linear Thought Content: Looking forward to talking to her daughter Cognition: A/O X 3, some disorientation re: situation Insight: Poor Judgment: Poor Interventions PRN's used: None Therapeutic interventions: 1:1 assessment, establishment of rapport, active listening, therapeutic conversation, medication administration/education/monitoring, blood sugar monitoring & control, limit setting, positive reinforcement, Q15 min safety checks. Restraints/seclusion/emergency medication: None Justification of Continued Inpatient Treatment: Pt needs interruption of current crisis with medication adjustment and monitoring in a safe and therapeutic environment as well as a safe discharge plan.
[2019-08-28] MEDS: docusate sod 100mg capsule PO SCH (07:32)
[2019-08-28] MEDS: metFORMIN 500mg tablet PO SCH ×2 (07:32→16:44)
[2019-08-28 07:33] VITALS: BP 134/77
[2019-08-28] MEDS: insulin regular, human vial - multi-dose SQ SCH ×3 (08:58→18:13)
[2019-08-28] MEDS: hydrOXYzine 25 MG tablet PO PRN (13:58)
[2019-08-28] MEDS: LORazepam 1 MG tablet PO PRN (14:28)
--- NOTE | 2019-08-28 15:56 | NUR ---
Pt reported "not feeling right," blood sugar was taken at 1530 and was 45. PRN Dex 4 glucose (two bottles) was dispensed at 1535. Blood sugar was retaken at 1600 and was 113.
--- NOTE | 2019-08-28 16:04 | NUR ---
SS met w/pt to finalize dcp, pt agreeable to going to [place], [place] w/her mother. SS had t/c with pt's mother, per t/c, mother will call the nurses' station on Monday to check d/c date. Current d/c date is Monday08/31/19, mother agreed to come and pick pt up between 3 & 4PM. SS had t/c with [facility] services, per t/c, pt will need to call [facility] to change her MediCal to [facility] before she can be seen in an outpatient clinic. However, on Monday09/02/19 pt can call [facility] line to schedule an intake. Pt can also contact and/or walk into the [facility] if needed. Information for accessing services via [facility] will provided to pt upon d/c as part of her d/c packet. Plan: Pt to d/c 08/31/19 to home w/mother and access outpatient care via [facility]. Lissa Lala LCSW Addendum: 08/28/19 at 1611 by Lissa RIVER Amended: Links added.
--- NOTE | 2019-08-28 16:05 | NUR ---
Nursing Progress Note: NELDA Legal hold: 5250 Exp 09/07 @ 1820 Client on involuntary status for GD. Report received from WALLACE Cameron with use of SBAR. Why are they here: Pt was brought to [facility] by her mother, with report of agitation, bizarre behaviors, poor self-care and drug use. 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 She was found in a ditch with medical and mental health issues. Pt is Type 1 DM. Assessment What has happened this shift: Pt observed on unit socializing appropriately with other peers. Pt's mood is bright and she is talkative. Pt is goal oriented and anxious to go home. Pt is friendly and conversational with staff and peers. Her insight appears to be increasing as she reports her need for medications and diabetic stability. She denies any SE's from medications and none were objectively observed. She requests Atarax and when questioned why she reports underlying anxiety. Reports she spoke with doctor about adding Atarax to her scheduled list of medications but that this didnt happen d/t being "side tracked talking about Rheumatoid Arthritis and getting a blood test for that." Pt reports she believes she has it because her right hand will "stop working" unexpectedly. After lunch pts mood abruptly changed. She demanded to speak to the doctor because "I want to kill myself." Atarax PRN was adminstered, parts data writer attempted to talk with the pt about her current distress to no avail. S/I, H/I: None reported or observed A/VH: None reported or observed Sleep: 8.25hrs NOC ADL's: Independent Group attendance: Yes Were Meds taken: Medication compliant Any med S/E: None reported or observed Mental Status Exam Appearance: Clean, dressed in green unit scrubs, with fuzzy boots, hat & fuzzy jacket Eye contact: Direct Behavior: Pleasant, cooperative Speech: Clear, audible Mood: Good Affect: Happy Thought process: Linear Thought Content: Looking forward to discharge Cognition: A/O X 4 Insight: Poor - Fair Judgment: Poor Interventions PRN's used: Atarax X1, Ativan X1 Therapeutic interventions: 1:1 assessment, establishment of rapport, active listening, therapeutic conversation, medication administration/education/monitoring, blood sugar monitoring & control, limit setting, positive reinforcement, Q15 min safety checks. Restraints/seclusion/emergency medication: None Justification of Continued Inpatient Treatment: Pt needs interruption of current crisis with medication adjustment and monitoring in a safe and therapeutic environment as well as a safe discharge plan.
[2019-08-28 20:00] VITALS: BP 188/66
[2019-08-28] MEDS: divalproex sod 250mg ER (24-hour) tablet PO SCH (20:12)
[2019-08-28] MEDS: risperiDONE 2mg tablet PO SCH (20:13)
[2019-08-28] MEDS: insulin glargine (Lantus) pen - multi-dose SQ SCH (20:23)
--- NOTE | 2019-08-29 04:31 | NUR ---
Nursing Progress Note Legal hold: 5250 Exp 09/07 @ 1820 Client on involuntary status for GD. Report received from WALLACE Salomon with use of SBAR. Why are they here: Pt was brought to [facility] by her mother, with report of agitation, bizarre behaviors, poor self-care and drug use. 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 She was found in a ditch with medical and mental health issues. Pt is Type 1 DM. Assessment What has happened this shift: Pt is socializing on the unit and pleasant with staff. She is wearing green scrubs, a leopard coat and furry boots. She is animated and smiling. Pt is medication compliant and cooperative with 1:1 assessment. Pt states that her day went well and she is excited to be able to go home soon. Pt is very conscious of what she eats due to her diabetes, and has fha underwriter approve of her HS snack. Pt is seen stretching on the floor in her room before bed. HS blood glucose was 127. Lantus 18 units per protocol administered. 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 Mental Status Exam Appearance: Clean, dressed in green unit scrubs, with fuzzy boots Eye contact: Good Behavior: Pleasant, cooperative Speech: Clear, audible Mood: Good Affect: Happy Thought process: Linear Thought Content: Looking forward to talking to her daughter Cognition: A/O X 3, some disorientation re: situation Insight: Poor Judgment: Poor Interventions PRN's used: None Therapeutic interventions: 1:1 assessment, establishment of rapport, active listening, therapeutic conversation, medication administration/education/monitoring, blood sugar monitoring & control, limit setting, positive reinforcement, Q15 min safety checks. Restraints/seclusion/emergency medication: None Justification of Continued Inpatient Treatment: Pt needs interruption of current crisis with medication adjustment and monitoring in a safe and therapeutic environment as well as a safe discharge plan.
[2019-08-29] MEDS: docusate sod 100mg capsule PO SCH (07:45)
[2019-08-29] MEDS: metFORMIN 500mg tablet PO SCH ×2 (07:45→17:25)
[2019-08-29] MEDS: acetaminophen 325mg tablet PO PRN (07:49)
[2019-08-29 08:00] VITALS: BP 97/63
[2019-08-29] MEDS: insulin regular, human vial - multi-dose SQ SCH ×3 (08:45→18:28)
[2019-08-29] MEDS: LORazepam 1 MG tablet PO PRN ×2 (12:30→21:22)
--- NOTE | 2019-08-29 18:05 | NUR ---
Nursing Progress Note Legal hold: 5250 Exp 09/07 @ 1820 Client on involuntary status for GD. Report received from WALLACE Cameron with use of SBAR. Why are they here: Pt was brought to [facility] by her mother, with report of agitation, bizarre behaviors, poor self-care and drug use. 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 She was [place] a ditch with medical and mental health issues. Pt is Type 1 DM. Assessment What has happened this shift: Patient is observed sleeping at shift change. She wakes and is observed in appropriate social interactions. She states that she is doing well and denies any issues. She takes her medications and joins others for breakfast in the group room. She is overheard offering advice to her peers and talking on the phone with friends/family. Patient is overheard telling loved ones how well she is doing and how much being on the unit has helped her. Her mood is upbeat and pleasant. At various times during the day patient states that she is Marvin and attempting to change her Diabetes from type I to type II. She states that once she accomplishes this she will make her diabetes go away and she just wont have it anymore. Patient becomes fixated on her insulin and injections, speech is mildly pressured, she is difficult to interrupt. She states that something needs to be done, she either needs to have the metformin discontinued or one of her insulin injections discontinued. 0639 blood glucose 58, patient none symptomatic, ate 60carbs with breakfast. ??0845 blood glucose 240, 4units Humalin administered. 1252 blood glucose 233, ate 78carbs with lunch., 7units Humalin administered. 1742 blood glucose 244 ?? S/I, H/I: None reported or observed A/VH: None reported or observed Sleep: 6hrs NOC ADL's: Independent, showered this morning Group attendance: yes Were Meds taken: Medication compliant Any med S/E: None reported or observed. Mental Status Exam Appearance: Clean, dressed in green unit scrubs, with fuzzy boots Eye contact: direct Behavior: Pleasant, cooperative Speech: Clear, soft tone, normal rate/rhythm in the morning, in the afternoon her speech became pressured Mood: happy Affect: congruent to mood Thought process: Linear Thought Content: focused on her wellness, delusional thought content expressed Cognition: A/O X 4 Insight: fair Judgment: fair Interventions PRN's used: Tylenol for H/A Therapeutic interventions: 1:1 assessment, establishment of rapport, active listening, therapeutic conversation, medication administration/education/monitoring, blood sugar monitoring & control, limit setting, positive reinforcement, Q15 min safety checks. Restraints/seclusion/emergency medication: None Justification of Continued Inpatient Treatment: Continued therapeutic support and medication management needed to provide stabilization, prevent decompensation, improve coping mechanisms decreasing risk to patient and re-admittance.
[2019-08-29 19:40] VITALS: BP 114/66
[2019-08-29] MEDS: hydrOXYzine 25 MG tablet PO SCH (20:46)
[2019-08-29] MEDS: risperiDONE 2mg tablet PO SCH (20:46)
[2019-08-29] MEDS: divalproex sod 250mg ER (24-hour) tablet PO SCH (20:47)
--- NOTE | 2019-08-29 21:34 | NUR ---
P/C to Hospitalist Pt is refusing Lantus dose of 16 per protocol and would like 20 units of Lantus despite educating pt on the protocol and why we are using that dose. Pt was crying stating she should have never been given Metformin and doesn't know why she is taking Metformin and no longer wants any Metformin. Per Hospitalist Dr Davidson, pt can request a higher dose of Lantus if she feels she needs a higher dose to manage her insulin. Dr Davidson is allowing the higher dose of 20 units per patient request. Pts BS is is 220, AM blood sugar was 58. Addendum: 08/29/19 at 2141 by Gaby Keating RN Pts metformin is DC'd as well.
[2019-08-29] MEDS: insulin glargine (Lantus) pen - multi-dose SQ SCH (21:36)
--- NOTE | 2019-08-30 00:40 | NUR ---
Nursing Progress Note Legal hold: 5250 Exp 09/07 @ 1820 Client on involuntary status for GD. Report received from WALLACE Salomon with use of SBAR. Why are they here: Pt was brought to [facility] by her mother, with report of agitation, bizarre behaviors, poor self-care and drug use. 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 She was [place] in a ditch with medical and mental health issues. Pt is Type 1 DM. Assessment What has happened this shift: Pt was seen walking down the isles at change of shift wearing a fuzzy leopard print coat and boots. When this scenario writer introduced self, patient appeared to be happy, smiling, and interacting appropriately with other patients. During 1:1 physical assessment and medication administration, patient began to fixate on her medications and how they were all wrong. She stated that she did not want to take metformin anymore because it was damaging her liver. She became agitated and teary because she believed she was going into DKA. Was cooperative for physical assessment and medication administration but refused to answer any other questions. She stated that doctors did not take her very seriously and did not know what they were doing. She stated that she was not going to accept the Lantus unless it was more than 20 units. Hospitalist was contacted and he agreed to have metformin D/C and to have the Lantus increased to 20 units based on her HS BG. HS blood glucose was 220. Lantus 20 units per hospitalist administered. 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 Mental Status Exam Appearance: Clean, dressed in green unit scrubs, with thick jacket and fuzzy boots Eye contact: Good Behavior: Agitated, teary, paranoid Speech: Clear, audible Mood: labile Affect: congruent with mood Thought process: Linear Thought Content: Metformin, her diabetes Cognition: A/O X 3, some disorientation re: situation Insight: Poor Judgment: Poor Interventions PRN's used: None Therapeutic interventions: 1:1 assessment, establishment of rapport, active listening, therapeutic conversation, medication administration/education/monitoring, blood sugar monitoring & control, limit setting, positive reinforcement, Q15 min safety checks. Restraints/seclusion/emergency medication: None Justification of Continued Inpatient Treatment: Pt needs interruption of current crisis with medication adjustment and monitoring in a safe and therapeutic environment as well as a safe discharge plan.
[2019-08-30] MEDS: docusate sod 100mg capsule PO SCH (07:38)
[2019-08-30] MEDS: hydrOXYzine 25 MG tablet PO SCH ×3 (07:38→20:52)
[2019-08-30 07:47] VITALS: BP 96/54
[2019-08-30] MEDS: insulin regular, human vial - multi-dose SQ SCH ×3 (08:41→18:14)
[2019-08-30] MEDS: LORazepam 1 MG tablet PO PRN (13:40)
--- NOTE | 2019-08-30 13:45 | NUR ---
Reassessment: Pt PO 100% avg meals meeting needs. LBM 08/29. Recent bed scale wt -9kg from standing scale weights on admit; likely error. No nutrition concerns at this time. Will continue to monitor. Rec: 1. continue carb controlled diet 2. bowel care as needed 3. weekly wts 4. monitor for ONS needs if PO intake declines Addendum: 08/30/19 at [address] Amended: Links added.
--- NOTE | 2019-08-30 16:58 | NUR ---
Nursing Progress Note Legal hold: 5250 Exp 09/07 @ 1820 Client on involuntary status for GD. Report received from WALLACE Leggett with use of SBAR. Why are they here: Pt was brought to [facility] by her mother, with report of agitation, bizarre behaviors, poor self-care and drug use. 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 She was found in a ditch with medical and mental health issues. Pt is Type 1 DM. Assessment What has happened this shift: Patient is up waiting to take a shower at change of shift. After shower she join sothers in the group room for breakfast. Patients room is organized, bed is made, clothing is folded and staked neatly on shelves. Patient states how much insulin she wants to have and what kind of foods/snacks she wants. RN provided diet and medication education, encouraged patient to make healthy choices. Patient states she understands her illness, body and knows how to manage it. Patient requests print out of medications and for RN to go over dosage times. RN provided printouts of atarax and ativan, patient states she knows the other meds. Patient is assured that RN will go over all medication dosages and times when patient discharges tomorrow. Patient states that peer is looking at people and casting spells, saying things under her breath. RN is unable to deter patient from this thought. Patient continues to state that she is Marvin today. 0813 blood glucose 11, ate 71 carbs with breakfast, 5 units Humalin administered. 1252 blood glucose 150, ate 66carbs with lunch., 6 units Humalin administered. Patients VPA level drawn this AM and is 92. S/I, H/I: None reported or observed A/VH: None reported or observed Sleep: 6.75hrs NOC ADL's: Independent, showered this morning Group attendance: yes Were Meds taken: Medication compliant Any med S/E: None reported or observed. Mental Status Exam Appearance: Clean, dressed in green unit scrubs, with fuzzy boots and fuzzy jacket Eye contact: direct Behavior: Assertive, grandiose, happy Speech: Clear, soft tone, pressured speech Mood: happy Affect: congruent to mood Thought process: Linear Thought Content: delusional thought content expressed Cognition: A/O X 4 Insight: fair Judgment: fair Interventions PRN's used: ativan for anxiety, tylenol for headache Therapeutic interventions: 1:1 assessment, establishment of rapport, active listening, therapeutic conversation, medication administration/education/monitoring, blood sugar monitoring & control, limit setting, positive reinforcement, Q15 min safety checks. Restraints/seclusion/emergency medication: None Justification of Continued Inpatient Treatment: Continued therapeutic support and medication management needed to provide stabilization, prevent decompensation, improve coping mechanisms decreasing risk to patient and re-admittance.
[2019-08-30 19:16] VITALS: BP 129/77
[2019-08-30] MEDS: divalproex sod 250mg ER (24-hour) tablet PO SCH (20:52)
[2019-08-30] MEDS ORDERED: risperiDONE 0.5mg tablet PO SCH (21:00)
[2019-08-30] MEDS: insulin glargine (Lantus) pen - multi-dose SQ SCH (21:02)
--- NOTE | 2019-08-31 00:45 | NUR ---
Nursing Progress Note Legal hold: 5250 Exp 09/07 @ 1820 Client on involuntary status for GD. Report received from WALLACE Lowry with use of SBAR. Why are they here: Pt was brought to [facility] by her mother, with report of agitation, bizarre behaviors, poor self-care and drug use. 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 She was found in a ditch with medical and mental health issues. Pt is Type 1 DM. Assessment What has happened this shift: Pt in her room during shift change. Appears to be in a good mood. When asked about her day she states that she had a good day and is really excited about going home tomorrow. Pt calm and cooperative during 1:1 assessment and compliant with all her PM medications. Pt denies S/I and did not make any delusional statements during this shift. Pt talked about how she recognized meth is really bad for her and plans to not take it any more. Pt also talks about her cuts and how they are self harming. Pt has multiple cut cantu in her arms, abdomen and neck. She states that she also has them in her legs. Pt also talks about her daughter. This seems to make her very happy. Pt was given a snack before going to bed. Will continue to monitor. HS blood glucose was 195. Lantus 20 units per hospitalist administered. 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 Mental Status Exam Appearance: Clean, dressed in green unit scrubs, with thick jacket and fuzzy boots Eye contact: Good Behavior: Agitated, teary, paranoid Speech: Clear, audible Mood: labile Affect: congruent with mood Thought process: Linear Thought Content: Metformin, her diabetes Cognition: A/O X 3, some disorientation re: situation Insight: Poor Judgment: Poor Interventions PRN's used: None Therapeutic interventions: 1:1 assessment, establishment of rapport, active listening, therapeutic conversation, medication administration/education/monitoring, blood sugar monitoring & control, limit setting, positive reinforcement, Q15 min safety checks. Restraints/seclusion/emergency medication: None Justification of Continued Inpatient Treatment: Pt needs interruption of current crisis with medication adjustment and monitoring in a safe and therapeutic environment as well as a safe discharge plan.
[2019-08-31 07:47] VITALS: BP 107/70
[2019-08-31] MEDS: hydrOXYzine 25 MG tablet PO SCH ×2 (07:59→12:07)
[2019-08-31] MEDS: docusate sod 100mg capsule PO SCH (07:59)
[2019-08-31] MEDS: insulin regular, human vial - multi-dose SQ SCH ×2 (08:44→13:43)
[2019-08-31] MEDS ORDERED: GLUC1KIT2 SUBCUT (13:24)
[2019-08-31] MEDS ORDERED: DIVA250T8 PO (13:24)
[2019-08-31] MEDS ORDERED: METF-950 PO (13:24)
[2019-08-31] MEDS ORDERED: HYDR-3686 PO (13:24)
[2019-08-31] MEDS ORDERED: INSU100V30 SQ (13:24)
[2019-08-31] MEDS ORDERED: NICO-668 BC (13:24)
[2019-08-31] MEDS ORDERED: RISP0.5T3 PO (13:24)
[2019-08-31] MEDS ORDERED: LANTUS SQ (13:24)
--- NOTE | 2019-08-31 14:11 | NUR ---
Nursing Discharge Note Patient is discharged at 1355, she left [facility] ambulatory and accompanied by Melisa Plunkett. Patient will travel with her mom back home to [place], [place]. Patient has improved since admit, no S/S of distress. Discharge instructions provided verbally and in handout. Patient is allowed time to ask questions and medication education is provided. All valuables are provided back to patient. Nicotine replacement is not provided because patient does not use nicotine.
--- NOTE | 2019-09-02 08:19 | NUR ---
Pt's d/c'd over the weekend to travel to [place], [place] w/mother, and to f/u with [facility] ACCESS services. SS referral's closed. Addendum: 09/02/19 at 0820 by Lissa Lala SS Amended: Links added.
== END 2019-08-31 13:59 | disposition home or self-care (01) | DRG 753 ==
LOC: ADULT MH 18:08
PROVIDERS: ADMIT Psychiatry & Neurology Psychiatry; ATTEND Psychiatry & Neurology Psychiatry
PROC: 3E0234Z Introduction of Serum, Toxoid and Vaccine into Muscle, Percutaneous Approach (ICD-10-PCS; principal; 2019-08-22)
PROC: 3E02340 Introduction of Influenza Vaccine into Muscle, Percutaneous Approach (ICD-10-PCS; 2019-08-22)
DX: F31.2 Bipolar disorder, current episode manic severe with psychotic features (principal); E10.65 Type 1 diabetes mellitus with hyperglycemia; E78.5 Hyperlipidemia, unspecified; F15.10 Other stimulant abuse, uncomplicated; Z79.4 Long term (current) use of insulin; Z91.14 Patient's other noncompliance with medication regimen; Z59.0 Homelessness; Z23 Encounter for immunization; Z88.0 Allergy status to penicillin; Z88.5 Allergy status to narcotic agent; Z79.899 Other long term (current) drug therapy
CPT/HCPCS: 36415; 80053; 80061; 80164; 82948; 83036; 85025; 87081; 90732; 99285; J1815; Q0163; Q2037; Z7610